=== PATIENT | female | born 1980 | race Caucasian/White ===

== ENCOUNTER 2021-02-15 10:38 | Emergency (ER) | payer OTHER ==
[2021-02-15 11:12] LABS: BASOPHIL 0.6 % (0-2); EOSINOPHIL 1.4 % (0-5); HGB 13.5 g/dl (12.5-16.0); MCH 29.7 pg (25.0-31.0); MCHC 33.8 g/dL (32.0-36.0); MCV 88.1 fL (78.0-100.0); MONOCYTE 6.6 % (0-12); MPV 10.2 fL (6.0-9.5); NRBC 0; PLT 191 K/uL (150-400); RBC 4.54 M/uL (4.20-5.40); RDW 12.7 % (11.5-14.0); WBC 5.1 K/uL (4.0-10.5)
[2021-02-15 11:34] LABS: BUN/CREAT RATIO (CALC) 11.7 RATIO; CREATININE 0.77 mg/dL (0.51-0.95); POTASSIUM 3.5 mmol/L (3.5-5.1)
== END 2021-02-15 12:37 | disposition home or self-care (01) ==
LOC: FER 10:38
PROVIDERS: Emergency Medicine
DX: R07.89 Other chest pain (principal); F41.1 Generalized anxiety disorder; I49.8 Other specified cardiac arrhythmias; Z90.09 Acquired absence of other part of head and neck
CPT/HCPCS: 36415; 80048; 84443; 84484; 85025; 93005